=== PATIENT | female | born 1995 | race Caucasian/White ===

== ENCOUNTER 2022-09-28 13:39 | Outpatient (CLI) | payer OTHER, SELFPAY ==
[2022-09-28 16:54] LABS: Vitamin D 25 Hydroxy* 48 ng/mL (30-80)
[2022-10-01 04:07] LABS: Rubella Antibody IgG 29.2 IU/mL
== END 2022-09-28 13:40 | disposition home or self-care (01) ==
PROVIDERS: Visit Provider Obstetrics & Gynecology
DX: Z01.419 Encounter for gynecological examination (general) (routine) without abnormal findings (principal); E55.9 Vitamin D deficiency, unspecified; N92.0 Excessive and frequent menstruation with regular cycle; Z31.69 Encounter for other general counseling and advice on procreation
CPT/HCPCS: 82306; 84443; 86762